=== PATIENT | female | born 1945 | race Caucasian/White ===

== ENCOUNTER → 2016-09-12 | Outpatient (CLI) | payer OTHER, MEDICARE | LOC: MMPC 11:11 | PROVIDERS: ATTEND Surgery | DX: Z80.0 Family history of malignant neoplasm of digestive organs (principal); Z86.010 Personal history of colon polyps | CPT/HCPCS: 99202; G0463 ==

== ENCOUNTER 2016-09-18 09:32 | Day surgery (SDC) | payer OTHER, MEDICARE ==
[~2016-09-18 09:32] MED LIST: LIDOCAINE W/ SODIUM BICARB 0.5 ML SYR ONE; Lactated Ringers 1,000 ML PRIMARY IV ONE
[2016-09-18 10:00] VITALS: RESP 17
--- NOTE | 2016-09-18 10:48 | GEN.OPNOTE ---
Colonoscopy Procedure Note Surgery Date: 09/18/16 Preoperative Diagnosis: Personal history of colon polyps. Family history of colon cancer. Postoperative Diagnosis: Personal history of colon polyps. Family history of colon cancer. Diverticulosis. Procedure: Complete colonoscopy. Surgeon: Dayne Reyna MD Anesthesia Provider: Steffen Bach CRNA Anesthesia Type: MAC Indications: Patient with a personal history of colon polyps and a family history of colon cancer due for follow-up colonoscopy. Her last colonoscopy was in 2009. With her history it is recommended she have a colonoscopy every 5 years. Findings: Prep : [Fair, some retained stool and liquid] Cecum : [Normal] Ascending : [Normal with scattered diverticuli] Transverse : [Normal] Sigmoid : [Normal with moderate diverticulosis] Rectum : [Normal] Digital Rectal Exam : [No perianal pathology.] A lubricated flexible colonoscope was inserted and passed to the blind end of the cecum. The appendiceal orifice and ileocecal valve were clearly seen. Air was aspirated as the scope was withdrawn. Other than diverticulosis a colonoscopy was normal without polyp, tumor, neoplastic mass, infectious or inflammatory process. The scope was withdrawn completing the procedure. Patient tolerated the procedure well without complication. She was taken to outpatient surgery in stable condition. Follow-up will be with my office on an as-needed basis. It is recommended she undergo follow-up colonoscopy in 5 years with her history.
[2016-09-18 11:23] VITALS: TEMP 96.8
== END 2016-09-18 11:18 | disposition home or self-care (01) ==
LOC: SDSC 09:32
PROVIDERS: ATTEND Surgery
DX: Z80.0 Family history of malignant neoplasm of digestive organs (principal); Z86.010 Personal history of colon polyps; K57.90 Diverticulosis of intestine, part unspecified, without perforation or abscess without bleeding
CPT/HCPCS: 00810; 45378 ×2; J2704; J7120

== ENCOUNTER → 2016-09-19 | Outpatient (CLI) | payer OTHER, MEDICARE ==
--- NOTE | 2016-09-19 16:38 | DI ---
Bone mineral density of the spine, CT acquisition. Clinical history postmenopausal screening. Prior examination: 05/01/13. Osteoporosis demonstrated on the examination 3-D quantitative CT bone mineral densitometry examination performed today. Survey images indicate prior cholecystectomy. L1 and L2 were surveyed today. The aggregate bone mineral density is 89.9, age-matched is 83.3. This correlates with a T. value of -3.02 and a Z score of 0.25. The left hip was evaluated. Femoral neck, trochanter and intertrochanteric values are -0.53,-0.61 and -0.29 respectively. Total hip value is 0.906 with a T score of -0.14. Impression: Discordance between the lumbar and femoral values is common. In this instance, the left h ip value is within normal limits whereas the 2 lumbar levels sampled indicate osteoporosis. Measures to augment bone mass based upon the lumbar value may be considered. Next bone densitometry study debbie ld be in 12 months if undertaken
== END ==
LOC: CT 13:47
PROVIDERS: ATTEND Nurse Practitioner Family
DX: M81.0 Age-related osteoporosis without current pathological fracture (principal)
CPT/HCPCS: 77078

== ENCOUNTER → 2016-10-19 | Outpatient (CLI) | payer OTHER, MEDICARE | LOC: MMPC 09:00 | PROVIDERS: ATTEND Nurse Practitioner Family | DX: M81.0 Age-related osteoporosis without current pathological fracture (principal) | CPT/HCPCS: 99213; G0463 ==

== ENCOUNTER → 2016-11-24 | Outpatient (CLI) | payer OTHER, MEDICARE ==
[2016-11-24 10:21] LABS: BASOPHILS # (AUTO) 0.03 10*3/UL; BASOPHILS % (AUTO) 0.4 % (0-1); EOSINOPHILS # (AUTO) 0.06 10*3/UL; EOSINOPHILS % (AUTO) 0.7 % (0-8); HEMATOCRIT 42.1 % (37.0-47.0); HEMOGLOBIN 14.4 g/dL (12.0-16.0); LYMPHOCYTES # (AUTO) 2.61 10*3/uL; MEAN CORPUSCULAR HEMOGLOBIN 28.9 PG (27-31); MEAN CORPUSCULAR HGB CONC 34.2 g/dL (33-37); MEAN PLATELET VOLUME 9.5 FL (7.4-12.2); MONOCYTES % (AUTO) 6.1 % (5-15); NEUTROPHILS # (AUTO) 4.97 10*3/UL; NEUTROPHILS % (AUTO) 60.8 % (50-80); RED BLOOD COUNT 4.99 10^6/uL (4.20-5.40)
[2016-11-24 10:35] LABS: PLATELET MORPHOLOGY COMMENT NORMAL MORPHOLOGY (NORM); RBC MORPHOLOGY COMMENT NORMAL MORPHOLOGY (NORM); WBC MORPHOLOGY COMMENT NORMAL MORPHOLOGY (NORM)
[2016-11-24 10:43] LABS: HEMOGLOBIN A1C 5.41 % (4.2-6.0)
[2016-11-24 10:53] LABS: CREATININE, URINE 170.5 MG/DL (15-500)
[2016-11-24 10:53] LABS: BUN/CREATININE RATIO 22.85 (6-20); CALCIUM 9.7 mg/dL (8.7-10.7); CHOL/HDL RATIO 3.2 RATIO (0-4.0); SERUM ALBUMIN 4.5 g/dL (3.5-4.8)
[2016-11-24 11:54] LABS: FREE T4 (FREE THYROXINE) 1.05 ng/dL (0.93-1.71)
== END ==
LOC: LAB 10:04
PROVIDERS: ATTEND Nurse Practitioner Family
DX: M81.0 Age-related osteoporosis without current pathological fracture (principal); E03.9 Hypothyroidism, unspecified; R73.9 Hyperglycemia, unspecified; Z82.49 Family history of ischemic heart disease and other diseases of the circulatory system; Z80.0 Family history of malignant neoplasm of digestive organs
CPT/HCPCS: 36415; 80053; 80061; 82043; 83036; 84439; 84443; 85025